=== PATIENT | male | born 1935 | race Caucasian/White ===

== ENCOUNTER → 2017-02-23 | Outpatient (REF) | payer MEDICARE, OTHER ==
[~2017-02-23] MED LIST: ALLE25CA OR; ALTA10CA OR; AMLO10TA PO; ASPI81TA83 OR; ASPI81TA85 PO; ATOR40TA PO; COLA100C2 OR; COLA100C3 PO; COUM2.5T11 PO; Dulcolax PO; GLUC1000 OR; GLUC500T3 OR; GLUC5TAB3 PO; HYDR-3713 PO; HYDR10TAB PO; LEVO112T2 PO; METF750T PO; MIRA3350 PO; MULTIVIT OR; MULTTAB23 PO; NABU750T OR; OXYC10TA97 OR; PAIN325T OR; PERC5TAB6 PO; PERC5TAB8 OR; PERC7.5T8 OR; RAMI10CA PO; ROSU10TA OR; SENO8.6T2 PO; SPIRPOW; SPIRPOW PO; SYNT50TA OR; TIMOLOL MALEATE OU; TUMS500C OR; TUMS500C PO; TYLE325T5 PO; TYLE500T53 OR; Theragran PO; VIT D 2000 PO; VITA1TAB7 PO; Vicodin 5/500 PO; WARF1TAB OR; WARFPOW3; [UNRECOGNIZED DRUG - OTHER]; metamucil PO; xalatan OU
== END ==
LOC: M LAB REF 12:44
PROVIDERS: ATTEND Internal Medicine
DX: E78.00 Pure hypercholesterolemia, unspecified (principal)

== ENCOUNTER → 2017-06-27 | Outpatient (CLI) | payer MEDICARE, OTHER ==
[~2017-06-27] MED LIST changes: -ATOR40TA PO; +ATOR40TA75 PO; -COLA100C3 PO; +COLA100C5 PO; -COUM2.5T11 PO; +COUM2.5T17 PO; +PERC5TAB12 PO; -PERC5TAB6 PO; -SENO8.6T2 PO; +SENO8.6T5 PO
--- NOTE | 2017-06-28 18:41 | SLEEPCENT ---
DATE OF PROCEDURE: 06/27/2017 ORDERED BY: Karie Gonzales Nocturnal polysomnography was performed for re-titration of pressure therapy in this patient with obstructive sleep apnea syndrome. For testing, the patient was fit with a Storify Eson nasal mask of small size. 12 cm of water pressure was initially applied to the circuit and the lights were extinguished. 9 hours and 32 minutes of data were reviewed. There were 414 minutes of sleep identified. Sleep latency was normal at 23 minutes. Rapid eye movement (REM) latency was normal at 111 minutes. Sleep architecture was good with 4 REM periods appreciated. Overall sleep efficiency was 75.5%. The patient's EKG showed a regular rhythm, which appeared to be a sinus mechanism, average heart rate was 55 beats per minute. Some premature ventricular contractions (PVCs) were seen. EEG showed normal waveforms for awake and sleep. Respiratory events were fully palliated with continuous positive airway pressure (CPAP) at a pressure of +12. Some limb activity was noted. Arousals from limb events were few at 6.1. IMPRESSION: Obstructive sleep apnea syndrome (G47.33). RECOMMENDATION: Nightly use of pressure therapy at 12 cm of water is sufficient to address the patient's respiratory events. Copy To: Dr. Emery
== END ==
LOC: M SLEEP 20:00
PROVIDERS: ATTEND Nurse Practitioner Adult Health
DX: G47.33 Obstructive sleep apnea (adult) (pediatric) (principal)

== ENCOUNTER → 2020-03-15 | Outpatient (CLI) | payer MEDICARE, OTHER ==
[~2020-03-15] MED LIST changes: -ASPI81TA85 PO; +ASPI81TA86 PO; +CRES10TA32 OR; +HYDR-2773 PO; -HYDR10TAB PO; -METF750T PO; +METF750T36 PO; -RAMI10CA PO; +RAMI1CAP26 PO; -ROSU10TA OR
== END ==
LOC: M LABSMTC 11:49
PROVIDERS: ATTEND Internal Medicine Cardiovascular Disease
DX: Z11.59 Encounter for screening for other viral diseases (principal)
CPT/HCPCS: C9803; U0003

== ENCOUNTER → 2020-04-12 | Outpatient (CLI) | payer MEDICARE, OTHER | LOC: M LABSMTC 11:25 | PROVIDERS: ATTEND Internal Medicine Cardiovascular Disease | DX: Z11.59 Encounter for screening for other viral diseases (principal) | CPT/HCPCS: C9803; U0003 ==

== ENCOUNTER → 2020-06-04 | Outpatient (CLI) | payer MEDICARE, OTHER ==
--- NOTE | 2020-06-12 12:39 | REP ---
RENAL ULTRASOUND HISTORY: Chronic kidney disease stage III. TECHNIQUE: Real-time sonographic evaluation of the kidneys is performed. FINDINGS: Left kidney is normal in size while the right kidney is mildly atrophic. Echotexture of the renal cortex is mildly increased bilaterally suggesting medical renal disease. There is no hydronephrosis. No renal mass is seen. Right kidney measures 8.7 x 4.1 x 5.3 cm and the left kidney 11.3 x 3.6 x 4.8 cm. Urinary bladder is empty. IMPRESSION: Mild right renal atrophy. No hydronephrosis. Somewhat increased cortical echotexture suggests medical renal disease. MTDD
== END ==
LOC: M RAD 12:45
PROVIDERS: ATTEND Internal Medicine Nephrology
DX: N18.3 Chronic kidney disease, stage 3 (moderate) (principal)

== ENCOUNTER → 2021-01-14 | Outpatient (CLI) | payer MEDICARE, OTHER | LOC: M LABSMTC 14:20 | PROVIDERS: ATTEND Pediatrics | DX: Z11.52 Encounter for screening for COVID-19 (principal) ==

== ENCOUNTER → 2021-04-21 | Outpatient (CLI) | payer MEDICARE, OTHER ==
[~2021-04-21] MED LIST changes: +B-650TAB2 PO; +CEPH500C PO; +CLOP75TA2; +GABA-282
--- NOTE | 2021-05-14 14:51 | REP ---
INDICATION: OBSTRUCTIVE SLEEP APNEA. COMPARISON: Report was withheld pending retrieval of outside prior CT study from a April 09, 2020. TECHNIQUE: Helical scanning is acquired. 3 mm axial images are generated. Coronal and sagittal MPR and coronal MIP images are generated. FINDINGS: Preliminary digital package handler radiograph demonstrates a bipolar pacemaker in the right heart. There is no evidence of pleural or pericardial effusion. There is some stable pleural thickening diffusely and bilaterally however. There is peripheral pattern of mild diffuse interstitial fibrosis. There is a pleural based area of peripheral consolidation in the left upper lobe seen to best advantage on page 33 of 120 in series 3 of today's study. This measures 2.2 cm and is felt to be unchanged. It is associated with some linear fibrosis radiating toward the hilum. There is a small quantity of fissural fluid on the left. There are left lower lobe and left upper lobe stable very small subcentimeter pulmonary nodules unchanged from the April 09, 2020 study. There is a calcified granulomatous nodule in the right middle lobe also unchanged from April 09, 2020. Aortic valve replacement is noted in place. This is been in installed in the interval since the prior study. 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 No bony destructive lesion is seen. Normal adrenal glands are observed. The gallbladder is surgically absent. The visualized upper abdominal structures are otherwise unremarkable. No mediastinal or hilar mass or adenopathy is seen. 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 Stable peripheral interstitial fibrosis and pleural thickening pattern. Stable nodular densities bilaterally including a peripheral wedge-shaped pleural based nodular density in the left apex 2.2 cm in diameter. No change from April 09, 2020. Consider repeat CT study in 1 year. <Electronically signed by Ganesh Thurman > 05/14/21 0915
== END ==
LOC: M PLAIMG 13:30
PROVIDERS: ATTEND Internal Medicine Pulmonary Disease
DX: G47.33 Obstructive sleep apnea (adult) (pediatric) (principal); Z95.0 Presence of cardiac pacemaker; Z95.2 Presence of prosthetic heart valve; Z95.4 Presence of other heart-valve replacement; J84.10 Pulmonary fibrosis, unspecified; R91.8 Other nonspecific abnormal finding of lung field

== ENCOUNTER 2021-05-13 11:44 | Emergency (ER) | payer MEDICARE, OTHER ==
[~2021-05-13] VITALS: Ht 170.2 cm; Wt 114.4 kg
[~2021-05-13 11:44] MED LIST changes: -B-650TAB2 PO; -CEPH500C PO; -CLOP75TA2; -GABA-282
[2021-05-13] MEDS ORDERED: GABA-282 (14:34)
[2021-05-13] MEDS ORDERED: CLOP75TA2 (14:34)
[2021-05-13] MEDS ORDERED: B-650TAB2 PO (14:34)
[2021-05-13] MEDS ORDERED: LIDOCAINE 1% SDV 5ML VIAL DILUENT ONE (14:45)
[2021-05-13] MEDS ORDERED: cefTRIAXone SOD 1GM VIAL (J0696 PER 250MG) IM ONE (14:45)
[2021-05-13] MEDS ORDERED: CEPH500C PO (14:55)
[2021-05-13 15:51] VITALS: BP 178/81
== END 2021-05-13 15:52 | disposition home or self-care (01) ==
LOC: M ED 11:44
DX: K02.9 Dental caries, unspecified (principal); K04.7 Periapical abscess without sinus; I51.9 Heart disease, unspecified; I10 Essential (primary) hypertension; Z97.2 Presence of dental prosthetic device (complete) (partial); Z87.891 Personal history of nicotine dependence; Z79.899 Other long term (current) drug therapy
CPT/HCPCS: 96372; 99283; J0696

== ENCOUNTER → 2021-08-14 | Outpatient (REF) | payer MEDICARE, OTHER ==
[~2021-08-14] MED LIST changes: +B-650TAB2 PO; +CEPH500C PO; +CLOP75TA2; +GABA-282
== END ==
LOC: M LAB REF 17:09
PROVIDERS: ATTEND Internal Medicine Nephrology
DX: E83.42 Hypomagnesemia (principal)

== ENCOUNTER → 2022-03-17 | Outpatient (REF) | payer MEDICARE, OTHER | LOC: M LAB REF 13:01 | PROVIDERS: ATTEND Internal Medicine Nephrology | DX: N25.81 Secondary hyperparathyroidism of renal origin (principal); N18.32 Chronic kidney disease, stage 3b; E11.22 Type 2 diabetes mellitus with diabetic chronic kidney disease ==